=== PATIENT | male | born 1995 | race Caucasian/White ===

== ENCOUNTER 2019-06-12 19:47 | Emergency (ER) | payer BC ==
[~2019-06-12] VITALS: Ht 177.8 cm; Wt 59.0 kg
[2019-06-12 19:50] VITALS: BP_SYST 119
--- NOTE | 2019-06-12 19:55 | NUR ---
Patient to ER bed 4 to gown for evaluation. Side rails up. Report given to Latisha PEMBERTON.
--- NOTE | 2019-06-12 20:09 | NUR ---
patient arrived AOx4 from home with c/o LLQ pain since last night. patient believes its from the window being open while he slept. patient gave himself an OTC enema to relieve abd pain however, it was unresolved. patient has normal active bowel sounds in all areas of the abd. Patient is unable to pass gas. no other complaint or injury at this time.
--- NOTE | 2019-06-12 20:09 | NUR ---
ER at bedside examining patient.
--- NOTE | 2019-06-12 20:10 | NUR ---
comfort measures applied
[2019-06-12] MEDS ORDERED: NACL 0.9% 1,000 ML IV ONE (20:53)
--- NOTE | 2019-06-12 20:53 | NUR ---
family at bedside.
[2019-06-12] MEDS ORDERED: KETOROLAC TROMETHAMINE 30 MG VIAL IVP ONE (21:00)
--- NOTE | 2019-06-12 21:00 | NUR ---
patient resting with mother at bedside. no complaints and no signs of distress
[2019-06-12 21:17] LABS: BASOPHILS % (AUTO) 0.3 % (0.0-2.0); HEMATOCRIT 41.7 % (36-54); HEMOGLOBIN 14.3 g/dL (14.0-18.0); LYMPHOCYTES # (AUTO) 0.6 K/uL (1.0-5.5); LYMPHOCYTES % (AUTO) 4.1 % (20.5-51.5); MEAN CORPUSCULAR HEMOGLOBIN 31 pg (27-31); MEAN CORPUSCULAR HGB CONC 34 % (32-36); MEAN CORPUSCULAR VOLUME 90 fL (79.0-98.0); MONOCYTES # (AUTO) 0.6 K/uL (0.0-1.0); MONOCYTES % (AUTO) 4.4 % (1.7-9.3); NEUTROPHILS # (AUTO) 13.2 K/uL (1.8-7.7); NEUTROPHILS % (AUTO) 91.2 % (40.0-70.0); PLATELET COUNT (AUTO) 172 K/uL (130-430); RED BLOOD CELL COUNT(AUTO) 4.62 MIL/uL (4.2-6.2); RED CELL DISTRIBUTION WIDTH 12.5 % (9.0-15.0); WHITE BLOOD COUNT (AUTO) 14.5 K/uL (4.8-10.8)
[2019-06-12 21:26] LABS: CREATININE 0.98 mg/dL (0.55-1.30); POTASSIUM 3.8 mmol/L (3.5-5.1)
[2019-06-12 21:32] LABS: ALBUMIN 3.9 g/dL (3.4-4.8)
--- NOTE | 2019-06-12 22:59 | NUR ---
Patient given written and verbal discharge instructions and verbalizes understanding. ER MD discussed with patient the results and treatment provided. Patient in stable condition. ID arm band removed. IV catheter removed intact and dressing applied, no active bleeding. Rx of Motrin and Zofran given. Patient educated on pain management and to follow up with PMD. Pain Scale 0/10. Opportunity for questions provided and answered. Medication side effect fact sheet provided.
[2019-06-12 23:03] VITALS: BP_SYST 110
== END 2019-06-12 22:59 | disposition home or self-care (01) ==
LOC: SED 19:47
DX: R10.32 Left lower quadrant pain (principal); R11.0 Nausea; Z90.89 Acquired absence of other organs
CPT/HCPCS: 36415; 74176; 80053; 81002; 83690; 85025; 96374; 99284; J1885; J7030

== ENCOUNTER 2023-06-14 16:50 | Emergency (ER) | payer BC ==
[~2023-06-14] VITALS: Ht 177.8 cm; Wt 68.0 kg
[2023-06-14 17:00] VITALS: BP_SYST 120; PULSE 86; RESP 16; TEMP 97.2; O2SAT 99
[2023-06-14] MEDS ORDERED: DIPHTH,PERTUSS(ACELL),TET VAC 0.5 ML VIAL (Tdap) I.M. ONE (17:45)
[2023-06-14 18:21] VITALS: BP_SYST 128; PULSE 72; RESP 18; TEMP 97.2; O2SAT 98
== END 2023-06-14 18:21 | disposition home or self-care (01) ==
LOC: SED 16:50
DX: S01.81XA Laceration without foreign body of other part of head, initial encounter (principal); Z79.899 Other long term (current) drug therapy; W22.8XXA Striking against or struck by other objects, initial encounter; Y93.89 Activity, other specified; Y92.89 Other specified places as the place of occurrence of the external cause; Y99.8 Other external cause status
CPT/HCPCS: 90715; 99283